=== PATIENT | female | born 1990 | race Two or more races ===

== ENCOUNTER 2023-03-16 15:03 | Emergency (ER) | payer SELFPAY ==
[2023-03-16] MEDS ORDERED: Ipratropium/Albuterol 3 ML NEB ONE (16:17)
[2023-03-16 17:11] LABS: SARS-CoV-2 NAA Rapid Test DETECTED (NotDetected)
== END 2023-03-16 17:51 | disposition home or self-care (01) ==
LOC: ERS 15:03
DX: U07.1 COVID-19 (principal); J20.9 Acute bronchitis, unspecified
CPT/HCPCS: 71045; J7620